=== PATIENT | female | born 1960 | race Caucasian/White ===

== ENCOUNTER 2016-11-18 12:23 | Emergency (ER) | payer OTHER ==
--- NOTE | ~2016-11-18 | CR72 ---
[facility] A Service of [facility] RADIOLOGY TEXT RESULTS PATIENT: DARREN JONES LOCATION: [place] : 58 UNIT #: [id number] AGE: [address]: Javid Barrera MD SEX: F ORDER DR: [id number] [facility] [address] [place], [place] [address] [id number] MR#: [id number] Acc #: [id number] NAME: DARREN JONES : 1960 SEX: F STUDY DATE/TIME: 11/18/2016 12:50 UNIT: [facility] ROOM: STUDY DESCRIPTION: CR Chest Single View Portable Attending Physician: Amandeep Barrera M.D. Ordering Physician: [facility] Primary Care Physician: Generic Doctor Not In System MEDICAL IMAGING REPORT This report is preliminary unless electronic signature is present EXAM Frontal chest 11/18/2016 INDICATIONS 56-year-old female with cough, congestion and shortness of air today. Diabetes, hypertension. Tobacco abuse. Frontal chest COMPARISON STUDIES No comparisons. FINDINGS Cardiac silhouette is within normal limits. There is elongation of the thoracic aorta related to underlying pulmonary hyperinflation. Vascularity is unremarkable. Calcified granulomas are present. No effusion, dense consolidation or pneumothorax. Curvilinear scarring or atelectasis in the lower lung zone on the left. We have no comparison studies for this patient. IMPRESSION Chronic-appearing lung changes. No definite superimposed active disease. We have no comparisons for this patient. Dictated by... Rahat Lowery M.D. THIS IS AN ELECTRONICALLY VERIFIED REPORT Rahat Lowery M.D. at 11/19/2016 7:12 AM Michelle TD: 11/18/2016 17:31 JOB #: [id number] [facility] A Service [facility] RADIOLOGY TEXT RESULTS PATIENT: DARREN JONES LOCATION: [place] : 58 UNIT #: [id number] AGE: [address]: Javid Barrera MD SEX: F ORDER DR: MEDICAL IMAGING REPORT Page 1 of 1 COPY
[2016-11-18] MEDS ORDERED: METFORMIN PO (12:57)
[2016-11-18] MEDS ORDERED: VASOTEC10 MG PO (12:57)
[2016-11-18] MEDS ORDERED: GLIPIZIDE XL5 MG PO (12:57)
[2016-11-18] MEDS ORDERED: PRAZOSIN HCL2 MG PO (12:57)
[2016-11-18] MEDS ORDERED: JANUVIA50 MG PO (12:57)
[2016-11-18] MEDS ORDERED: SPIRIVA18 MCG PO (12:58)
[2016-11-18] MEDS ORDERED: PROAIR HFA8.5 GM PO (12:58)
[2016-11-18] MEDS ORDERED: HYDROCODON-ACE1 EAC5 PO (12:58)
[2016-11-18] MEDS ORDERED: BUSPIRONE HCL10 M1 PO (12:58)
[2016-11-18] MEDS ORDERED: ARTANE2 M1 PO (12:58)
[2016-11-18] MEDS ORDERED: RISPERDAL3 MG PO (12:58)
[2016-11-18 13:41] LABS: BASOPHIL# 0.1 X10e3 (0-0.3); EOSINOPHIL# 0.1 X10e3 (0-0.7); EOSINOPHIL% 0.9 % (0.0-7.0); HEMATOCRIT 44.6 % (35.0-45.0); HEMOGLOBIN 15.2 gm/dL (12.0-16.0); LYMPHOCYTE# 1.6 X10e3 (1.0-3.5); LYMPHOCYTE% 26.7 % (17.0-45.0); MEAN CELL VOLUME 92.1 FL (83-96); MEAN CORPUSCULAR HEMOGLOBIN 31.3 PG (28-34); MONOCYTE# 0.6 X10e3 (0-1.0); MONOCYTE% 9.5 % (3.0-12.0); NEUTROPHIL# 3.8 X10e3 (1.5-7.1); NEUTROPHIL% 61.9 % (40-75); RED BLOOD COUNT 4.84 X10e (3.90-5.30); RED CELL DISTRIBUTION WIDTH 13.9 % (11.0-15.5); WHITE BLOOD COUNT 6.1 X10e3 (4.0-10.5)
[2016-11-18 13:43] LABS: DIFF IND YES; PLATELET COUNT 94 X10e3 (140-420)
[2016-11-18 13:47] LABS: ALBUMIN SERUM 4.4 g/dL (3.5-5.0); ANISOCYTOSIS SL; BILIRUBIN, DIRECT 0.2 mg/dL (0.0-0.2); BILIRUBIN,TOTAL 1.2 mg/dL (0.2-2.0); BUN/CREATININE RATIO 21.25; CALCIUM SERUM 9.5 mg/dL (8.4-10.2); CREATININE SERUM 0.8 mg/dL (0.6-1.4); GLOM FILT RATE Estimated 81.9 mL/min (>60); PLATELET ESTIMATE DECREASED (NORMAL); PROTEIN TOTAL SERUM 8.5 g/dL (6.0-8.3)
== END 2016-11-18 15:58 | disposition home or self-care (01) ==
LOC: CED 12:23
PROVIDERS: Emergency Medicine
DX: J20.9 Acute bronchitis, unspecified (principal); E11.9 Type 2 diabetes mellitus without complications; I10 Essential (primary) hypertension; K74.60 Unspecified cirrhosis of liver; F17.210 Nicotine dependence, cigarettes, uncomplicated
CPT/HCPCS: 36415; 71010; 80048; 80076; 85025; 94640; 96374; 99284; J2930